=== PATIENT | female | born 1950 | race African-American/Black ===

== ENCOUNTER → 2016-07-10 | Day surgery (SDC) | payer BC, MEDICAID ==
[~2016-07-10] VITALS: Ht 157.5 cm; Wt 45.4 kg
[2016-07-10] VITALS (10 sets, daily range): BP systolic 102–120; BP diastolic 62–74
[~2016-07-10] MED LIST: BSS 15ml BTL ONE; BSS 500ml btl ONE; Bupivacaine 0.75% 30ml vial INJ ONE; Cyclopentolate 1% Opth Sol ONE; Dexamethasone 4mg/ml vial ONE; DiphenhydrAMINE 50mg/ml Inj IVP PRN; DiphenhydrAMINE 50mg/ml Inj ONE; EPINEPHrine 1mg/1ml Amp ONE; Gatifloxacin Opth Solution 0.5% ONE; Indocyanine Green 25mg Inj INJ ONE; Kenalog-10 5ml Inj ONE; Kenalog-40 1ml Vial ONE; LR 1000ml 1,000 ML IVLG SCH; LR 1000ml ONE; Labetalol 5mg/ml 20ml vial IV PRN; Lidocaine 1% MPF 10mg/ml 5ml ONE; Lidocaine 2% MPF 5ml Vial INJ ONE; MS CONTIN30 MG ORAL; Maxitrol Opth Oint 3.5gm ONE; NS Irrig 1000ml ONE; Norco 5mg/325mg tab ORAL PRN; PREDNISONE20 MG ORAL; Phenylephrine 2.5% Op Soln ONE; Povidone-Iodine 5% opth solution ONE; Pred Forte 1% Opth Susp 1ml LEFT EYE ONE; Propofol 10mg/ml 20ml IV ONE; Sodium Hyaluronate 10 mg/ml 0.85ml ONE; Sterile Water Irrig 1000ml IRRIG ONE; Tetracaine 0.5% Opth Soln ONE; Triamcinolone 40mg/ml PF Vial ONE; fentaNYL 100 mcg/2 mL IV ONE
--- NOTE | 2016-07-10 06:02 | Pre-Procedure Note/Attestation ---
Pre-Procedure Note/Attestation Complete Prior to Procedure Planned Procedure: left Procedure Narrative: PPV, membrane peel with ICG assist, gas-fluid exchange, possible endolaser L eye Indications for Procedure Pre-Operative Diagnosis: Stage 4 macular hole L eye Attestation I attest that I discussed the nature of the procedure; its benefits; risks and complications; and alternatives (and the risks and benefits of such alternatives ), prior to the procedure, with the patient (or the patient's legal contact representative). I attest that, if there was a reasonable possibility of needing a blood transfusion, the patient (or the patient's legal contact representative) was given the [facility] standardized written summary, pursuant to the [place] Blood Safety Act ([place] Health and Safety Code # 1645, as amended). I attest that I re-evaluated the patient just prior to the surgery and that there has been no change in the patient's H&P, except as documented below: DEEPAK RAZA Jul 10, 2016 06:02
[2016-07-10] MEDS: Cyclopentolate 1% Opth Sol LEFT EYE SCH ×3 (06:30→06:48)
[2016-07-10] MEDS: Phenylephrine 2.5% Op Soln LEFT EYE SCH ×3 (06:30→06:49)
[2016-07-10] MEDS: Flurbiprofen 0.03% Opth Sol 2.5ml LEFT EYE SCH ×3 (06:30→06:49)
[2016-07-10] MEDS: Gatifloxacin Opth Solution 0.5% LEFT EYE SCH ×3 (06:30→06:49)
[2016-07-10 07:00] LABS: BASOPHILS % (AUTO) 1.8 % (0.0-2.0); EOSINOPHILS % (AUTO) 4.9 % (0.0-3.0); LYMPHOCYTES % (AUTO) 24.4 % (20.0-45.0); MEAN CORPUSCULAR HEMOGLOBIN 25.7 PG (27.0-31.0); MEAN CORPUSCULAR HGB CONC 30.6 G/DL (32.0-36.0); MEAN CORPUSCULAR VOLUME 84 FL (80-99); MONOCYTES % (AUTO) 9.8 % (1.0-10.0); NEUTROPHILS % (AUTO) 59.2 % (45.0-75.0); PLATELET COUNT 364 K/UL (150-450); RED BLOOD COUNT 3.64 M/UL (4.20-5.40); RED CELL DISTRIBUTION WIDTH 17.8 % (11.6-14.8); WHITE BLOOD COUNT 8.1 K/UL (4.8-10.8)
[2016-07-10 07:14] LABS: ANION GAP 14 (5-15); CALCIUM 9.9 mg/dL (8.6-10.2); CARBON DIOXIDE 25 mEQ/L (20-30); CHLORIDE 99 mEQ/L (98-107); GLOMERULAR FILTRATION RATE > 60 mL/min (>60); HEMOLYSIS 4; POTASSIUM 3.5 mEQ/L (3.4-4.9); SODIUM 138 mEQ/L (135-145)
--- NOTE | 2016-07-10 07:43 | Anethesia Preoperative Eval ---
Anesthesia Pre-op PMH/ROS General Date of Evaluation: Jul 10, 2016 Anesthesiologist: Luca ASA Score: ASA 2 Mallampati Score Class I : Soft palate, uvula, fauces, pillars visible Class II: Soft palate, uvula, fauces visible Class III: Soft palate, base of uvula visible Class IV: Only hard plate visible Mallampati Classification: Class II Surgeon: Anshu Diagnosis: Left eye macular pucker Surgical Procedure: Left eye posterior vitrectomy Anesthesia History: none Family History: no anesthesia problems Allergies: Coded Allergies: ASPIRIN (Verified Allergy, Unknown, 06/26/16) SULFA (SULFONAMIDE ANTIBIOTICS) (Verified Allergy, Unknown, 06/26/16) HYDROMORPHONE (Verified Adverse Reaction, Severe, 07/10/16) severe nausea Medications: see eMAR Past Medical History Cardiovascular: Denies: CAD, HTN, ND, arrhythmia, other, valve dz Pulmonary: Reports: asthma, Denies: COPD, DIPTI, other Gastrointestinal/Genitourinary: Reports: other - chrons, Denies: CRI, ESRD, GERD Neurologic/Psychiatric: Denies: CVA, TIA, dementia, depression/anxiety, other Endocrine: Denies: DM, hypothyroidism, other, steroids HEENT: Denies: [place] (L), [place] (R), cataract (L), cataract (R), glaucoma, other Hematology/Immune: Denies: DVT, anemia, bleeding disorder, other Musculoskeletal/Integumentary: Denies: DDD, DJD, OA, RA, edema, other PSxH Narrative: colon resection Anesthesia Pre-op Phys. Exam Physician Exam Last Vital Signs Date Time Temp Pulse Resp B/P Pulse Ox O2 Delivery O2 Flow Rate FiO2 07/10/16 06:36 97.7 88 20 120/73 100 Room Air Constitutional: NAD Cardiovascular: RRR Respiratory: CTA Airway Exam Mallampati Score: Class II MO: full ROM: full Teeth: intact Anesthesia Pre-op A/P Labs Hematology Test 07/10/16 06:40 White Blood Count 8.1 K/UL (4.8-10.8) Red Blood Count 3.64 M/UL (4.20-5.40) L Hemoglobin 9.3 G/DL (12.0-16.0) L Hematocrit 30.5 % (37.0-47.0) L Mean Corpuscular Volume 84 FL (80-99) Mean Corpuscular Hemoglobin 25.7 PG (27.0-31.0) L Mean Corpuscular Hemoglobin Concent 30.6 G/DL (32.0-36.0) L Red Cell Distribution Width 17.8 % (11.6-14.8) H Platelet Count 364 K/UL (150-450) Mean Platelet Volume 6.0 FL (6.5-10.1) L Neutrophils (%) (Auto) 59.2 % (45.0-75.0) Lymphocytes (%) (Auto) 24.4 % (20.0-45.0) Monocytes (%) (Auto) 9.8 % (1.0-10.0) Eosinophils (%) (Auto) 4.9 % (0.0-3.0) H Basophils (%) (Auto) 1.8 % (0.0-2.0) Chemistry Test 07/10/16 06:40 Sodium Level 138 mEQ/L (135-145) Potassium Level 3.5 mEQ/L (3.4-4.9) Chloride Level 99 mEQ/L (98-107) Carbon Dioxide Level 25 mEQ/L (20-30) Anion Gap 14 (5-15) Blood Urea Nitrogen 14 mg/dL (7-23) Creatinine 1.0 mg/dL (0.5-0.9) H Estimat Glomerular Filtration Rate > 60 mL/min (>60) Glucose Level 96 mg/dL (74-106) Calcium Level 9.9 mg/dL (8.6-10.2) Studies Pre-op Studies: EKG - sr Risk Assessment & Plan Assessment: ASA II Plan: MAC Status Change Before Surgery: No Pre-Antibiotics Drug: N/A JOSE JENSEN M.D. Jul 10, 2016 07:43
--- NOTE | 2016-07-10 07:43 | Immediate Post-Op Evaluation ---
Immediate Post-Op Evalulation Immediate Post-Op Evalulation Procedure: Left eye posterior vitrectomy Date of Evaluation: Jul 10, 2016 Time of Evaluation: 08:24 IV Fluids: 200 Blood Products: 0 Estimated Blood Loss: 0 Urinary Output: 0 Blood Pressure Systolic: 111 Blood Pressure Diastolic: 73 Pulse Rate: 84 Respiratory Rate: 16 O2 Sat by Pulse Oximetry: 100 Temperature (Fahrenheit): 97.4 Pain Score (1-10): 0 Nausea: No Vomiting: No Complications 0 Patient Status: awake, reacts, patent, none Hydration Status: adequate Drug: N/A JOSE JENSEN M.D. Jul 10, 2016 07:43
--- NOTE | 2016-07-10 07:44 | 48 Hour Post Anesthesia Eval ---
Post Anesthesia Evaluation Procedure: Left eye posterior vitrectomy Date of Evaluation: Jul 10, 2016 Blood Pressure Systolic: 119 0: 78 Pulse Rate: 89 Respiratory Rate: 16 O2 Sat by Pulse Oximetry: 100 Airway: patent Nausea: No Vomiting: No Hydration Status: adequate Cardiopulmonary Status: at baseline Mental Status/LOC: patient returned to baseline Post-Anesthesia Complications: 0 Follow-up care needed: ready to discharge JOSE JENSEN M.D. Jul 10, 2016 07:44
--- NOTE | 2016-07-10 08:27 | Brief Operative Note ---
Immediate Post Operative Note Operative Note Chief Complaint: Blurred central vision L eye Pre-op Diagnosis: Stage 4 macular hole L eye Procedure: PPV, ICG assisted membrane peel, gas fluid exchange 25% SF-6 L eye Post-op Diagnosis: Same Post-op Diagnosis: same as pre-op Surgeon: mabel Diesel Engine Mechanic: paco Anesthesiologist: martinez Anesthesia: MAC Specimen: none Complications: none Condition: stable Estimated Blood Loss: none Drains: none Implant(s) used?: No DEEPAK RAZA Jul 10, 2016 08:27
--- NOTE | 2016-07-10 12:58 | Operative Note - Dictated ---
DATE OF OPERATION: 07/10/2016 PREOPERATIVE DIAGNOSIS: Stage IV macular hole, left eye. POSTOPERATIVE DIAGNOSIS: Stage IV macular hole, left eye. PROCEDURES: 1. Pars plana vitrectomy. 2. ICG this couple eye couples the cavity assisted hyaline peel. 3. Gas fluid exchange, left eye. SURGEON: Esteban Brasher M.D. PIT STEWARD: Fadi Cunningham M.D. ANESTHESIA: Local sedation, Dr. Oconnor. JUSTIFICATION FOR SURGERY: This 66-year-old lady developed loss of vision, was found to have a stage IV macular hole. BRIEF NOTE: The patient was brought to the operating room, placed operating room table in supine position. After a time-out was performed and agreed upon by the staff an initial monitoring secured by Dr. Oconnor. Retrobulbar and Van Lint blocks given in standard way. When the blocks taken effect, she was prepped and draped in normal manner. A lid speculum was inserted into the left eye. Using a 23-gauge trocar system, cannulas were placed in all except infranasal quadrant. Infusion secured inferotemporally. Vitrectomy was begun posterior to the lens taking care to avoid contact. A central core vitrectomy was done followed by peripheral vitrectomy leaving a small vitreous skirt. The posterior hyaloid had previously detached and this was removed. The posterior viewing lens was inserted and ICG dye eye, 1 drop was used to stain the posterior eye ILM and then quickly evacuated from the eye. Using intraocular forceps, the ILM was engaged nasal to the macula and gently elevated. With the help of the Ciro ledger poster and the forceps the hyaline was peeled in a circular area roughly 3 disc diameters in size overlying the entire macula. No problems were encountered. The macular hole was noted to start to decrease in diameter slightly. Scleral depression was done and no peripheral breaks, tears, or detachments were seen. An air-fluid exchange was then performed followed by a gas exchange using a 25% SF6. A roughly 95% fill was obtained. The cannulas were then removed from the eye and after massage all wounds noted to be self-sealing. Subconjunctival Decadron and gentamicin were then injected inferiorly and Maxitrol and atropine ointments were instilled. The eye was patched and shielded. The patient taken to recovery in excellent condition. There were no complications. Esteban Brasher M.D. DR: Shameka JOB#: [id number] CC: Esteban Brasher M.D.; Fax#: [phone] Vaughn, M.D. ; Fax#: [phone]
--- NOTE | 2016-07-10 16:07 | Pre-op HX & Phy Repo 2 SIG ---
DATE OF SURGERY: 07/10/2016 PREOPERATIVE DIAGNOSIS: Stage IV macular hole, left eye. BRIEF NOTE: This is a first [place] admission for the patient who is a very nice 66-year-old lady who complained of blurred vision in the left eye for several weeks. On examination, she was found to have any macular hole and was admitted for macular hole surgery. PAST MEDICAL HISTORY: Remarkable for anemia and Crohn disease. PAST SURGICAL HISTORY: From an ocular standpoint is negative. She did have a colon resection in 1981. CURRENT MEDICATIONS: Furosemide, mercaptopurine, prednisone, morphine, tizanidine. ALLERGIC: She is allergic to aspirin and sulfa. PHYSICAL EXAMINATION: Best vision at the time of admission was 20/400 in the right eye and 20/300 in the the left with pressures 17 and 16. The anterior segment showed a prominent globes bilaterally and an excellent trochlea on the left. The remainder of the anterior segment exam was benign except for early nuclear sclerosis. Fundus exam of the right eye showed a posterior vitreous separation with floaters. The left eye showed a stage IV macular hole, roughly 400 microns in size. General physical examination will be done by Dr. Hernandez. ASSESSMENT: Stage IV macular hole, right eye. PLAN: The plan is to perform a pars plana vitrectomy with membrane and ILM pealing as well as a gas fluid exchange on the right. The risks and benefits of surgery gone over the patient with potential for infection, hemorrhage, glaucoma, and remote possibility of loss of the eye. The risk of anesthesia was also discussed. The patient understands and consents to surgery which will be performed tomorrow morning. Esteban Brasher M.D. DR: Ghada JOB#: [id number] CC: MAI
--- NOTE | 2016-07-10 16:28 | Pre-op HX & Phy Repo 2 SIG ---
DATE OF ADMISSION: 07/10/2016 PRESURGICAL INTERNAL MEDICINE HISTORY AND PHYSICAL REASON FOR EVALUATION: I was asked by Dr. Esteban Brasher to see this 66-year-old female, who going for elective surgery on the left eye. The patient was examined. Chart was reviewed. The patient has a macular pucker left eye. Please see full Ophthalmology History and Physical by Dr. Esteban Brasher. PAST MEDICAL HISTORY/REVIEW OF SYSTEMS: Remarkable for Crohn disease for more than 35 years, history of anemia, history of childhood asthma. No history of hypertension or stroke. Denies history of heart attack, chest pain, palpitation, or shortness of breath. No history of renal insufficiency. No history of diabetes. The patient had bronchial asthma as a child. 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 No history of thyroid problems. PAST SURGICAL HISTORY: Ileostomy 20 years ago. FAMILY HISTORY: Father from congestive heart failure and mother from liver cirrhosis. ALLERGIES: Sulfa, hydromorphone, and . CURRENT MEDICATION: Include prednisone 20 mg daily, morphine sulfate extended release 30 mg four times a day, Purinethol and a recently started a new biological immunosuppressive medication, unable to name it. SOCIAL HISTORY: The patient denies history of tobacco use, alcohol, or street drug use. PHYSICAL EXAMINATION: GENERAL: Alert well-developed and well-nourished female, in her 60s. No acute distress. VITAL SIGNS: Blood pressure 122/73, temperature 97.7, pulse 88 and regular, and O2 saturation 100% on room air. SKIN: Dry, pale, warm. No rashes. LYMPH NODES: Not enlarged. HEENT: Head normocephalic. Ear clear, no discharge. Nose clear, no discharge. Mouth, clear and moist. No dentures. Eyes, full description per Dr. Esteban Brasher. NECK: No jugular vein distention. Carotids artery +2. Trachea midline. No palpable mass. CHEST: No deformity or asymmetry. No palpable mass. LUNGS: No rales or rhonchi. Clear. HEART: Sinus rhythm. No ectopy. No murmur. No S3 or S4. ABDOMEN: Right ileostomy. No palpable mass. No rebound. Liver and spleen not enlarged. EXTREMITIES: No edema. No varicose veins. GENITOURINARY: CVA nontender. No dysuria. NEUROLOGIC: No tremor. No nystagmus. LABORATORY AND DIAGNOSTIC DATA: ECG sinus rhythm, 84 per minute, with short TN interval. Fasting blood sugar 72 mg/dL. The patient did not eat or drink from last night. IMPRESSION: 1. Macular pucker, left eye. 2. Crohn disease with complication. 3. Ileostomy. 4. Anemia. The patient is on prednisone and immunosuppressant medication. PLAN: Pars plana vitrectomy, 23 G membrane peeling, left eye per Dr. Esteban Brasher. CONCLUSION: The patient's vital signs stable. ECG normal. Fasting blood sugar 72 mg/dL. The patient is on prednisone. The patient did not eat or drink from last night. The patient's condition optimized for surgery. Thank you very much, Dr. Brasher, for privilege to participate in presurgical care of this interesting patient. Porter Hernandez M.D. DR: Jordan JOB#: [id number] CC:
--- NOTE | 2016-07-14 18:23 | Cardiology Report ---
APPROVED REPORT EKG Measurement Heart [id number] ND [id number] Sinus rhythm with short ND Otherwise normal ECG
== END | disposition home or self-care (01) ==
LOC: SUR 05:51
DX: H35.342 Macular cyst, hole, or pseudohole, left eye (principal); K50.90 Crohn's disease, unspecified, without complications; D64.9 Anemia, unspecified; Z90.49 Acquired absence of other specified parts of digestive tract; Z93.2 Ileostomy status; Z79.891 Long term (current) use of opiate analgesic; Z79.52 Long term (current) use of systemic steroids; Z79.899 Other long term (current) drug therapy; Z88.6 Allergy status to analgesic agent; Z88.5 Allergy status to narcotic agent; Z88.2 Allergy status to sulfonamides
CPT/HCPCS: 36415; 67042; 80048; 82962; 85025; 93005; J0171; J1100; J2704; J3010; J3301; J3470; J3490; J7120; 94003; 94150; J3300